=== PATIENT | female | born 1975 | race Two or more races ===

== ENCOUNTER 2023-04-06 09:42 | Day surgery (SDC) | payer OTHER ==
[~2023-04-06 09:42] MED LIST: CLONAZEPAM1 MG PO; GUAIFENESIN DM118 ML PO; IBUPROFEN800 MG PO; LEVAQUIN750 MG PO; LYRICA150 MG PO; MEDROLPACK PO; ORPH100T PO; PLAVIX75 MG PO; PROAIR HFA8.5 GM IH; SYMBICORT 16010.2 GM IH; ULTRACET PO; ZESTRIL5 MG PO
== END 2023-04-06 18:30 | disposition home or self-care (01) ==
LOC: CIR.AMB 09:42
PROVIDERS: ATTEND Obstetrics & Gynecology
DX: D25.0 Submucous leiomyoma of uterus (principal); N92.1 Excessive and frequent menstruation with irregular cycle; N93.9 Abnormal uterine and vaginal bleeding, unspecified; Z20.822 Contact with and (suspected) exposure to COVID-19; Z88.6 Allergy status to analgesic agent; I10 Essential (primary) hypertension; M79.7 Fibromyalgia